=== PATIENT | female | born 1995 | race Caucasian/White ===

== ENCOUNTER 2020-04-30 11:15 | Outpatient (CLI) | payer BC, SELFPAY ==
[2020-04-30 18:35] LABS: Basophils Percent Auto 0.2 % (0.2-1.2); Eosinophils Absolute Auto 0.1 K/mm3 (0-0.3); Eosinophils Percent Auto 1.1 % (0-4.4); Hematocrit 37.6 % (37.0-47.0); Hemoglobin 11.8 g/dL (12.0-15.0); Immature Granulocyte Absolute 0.01 K/mm3 (0.00-0.031); Immature Granulocyte Percent A 0.2 % (0-0.5); Lymphocytes Absolute Auto 1.33 K/mm3 (0.9-3.2); Lymphocytes Percent Auto 24.5 % (18.3-44.2); Mean Corpuscular HGB Conc 31.4 g/dl (32-36); Mean Corpuscular Hemoglobin 27.4 pg (26-34); Mean Corpuscular Volume 87.4 fl (80-100); Mean Platelet Volume 10.9 fl (7.4-10.4); Monocytes Absolute Auto 0.3 K/mm3 (0.1-0.6); Monocytes Percent Auto 6.3 % (2.6-8.5); Neutrophils Absolute Auto 3.7 K/mm3 (1.3-6.7); Neutrophils Percent Auto 67.7 % (45.5-73.1); Platelet Count Result 268 k/mm3 (150-375); Red Cell Distribution Width 13.9 % (11.5-14.5); White Blood Count 5.4 K/mm3 (4.5-10.0)
[2020-04-30 18:41] LABS: Add Urine Microscopic? YES; Amorphous Sediment Urine Few; Appearance Urine Turbid (Clear); Bacteria Urine 3+ /hpf; Bilirubin Urine Negative (Negative); Blood Urine Negative (Negative); Color Urine Yellow (Yellow); Glucose Urine UA Negative (Negative); Ketones Urine Negative (Negative); Leukocyte Esterase Ur Negative LEU/UL (Negative); Mucus Urine Heavy /lpf; Nitrate Urine Negative (Negative); Protein Urine Negative (Negative); Specific Grav Ur 1.024 (1.001-1.035); Squamous Epithelial Cell Urine Many /hpf (Few); Urobilinogen Urine Negative mg/dL (<2.0)
[2020-04-30 18:50] LABS: Alanine Aminotransferase 16 U/L (4-35); Albumin Level 4.5 g/dL (3.5-5.1); Alkaline Phosphatase 65 U/L (38-126); Anion Gap 6 mmol/L (8-16); Aspartate Amino Transferase 28 U/L (14-36); Bilirubin,Total 0.3 mg/dL (0.2-1.3); Blood Urea Nitrogen 10 mg/dL (7-17); Calcium 9.7 mg/dL (8.4-10.2); Carbon Dioxide 30 mmol/L (22-30); Chloride 105 mmol/L (98-107); Cholesterol 178 mg/dL (0-200); Estimated Glomerular Filt Rate > 60; Glucose 93 mg/dL (65-105); HDL Direct 79 mg/dL; Potassium 4.1 mmol/L (3.4-5.0); Sodium 141 mmol/L (137-145); Triglycerides 60 mg/dL (<150)
[2020-04-30 19:01] LABS: LDL Cholesterol Direct 79 mg/dL
[2020-04-30 19:02] LABS: Free T4 Free Thyroxine 0.57 ng/mL (0.78-2.19); Vitamin D 25 Hydroxy 28.2 ng/mL
[2020-04-30 19:57] LABS: Folic Acid > 20.0 ng/mL (2.76->20)
[2020-05-03 07:48] LABS: Triiodothyronine T3 Free 2.6 pg/mL (2.3-4.2)
[2020-05-04 10:33] LABS: T3 Reverse 6 ng/dL (8-25)
[2020-05-04 13:20] LABS: Testosterone Free 2.7 pg/mL (0.1-6.4); Testosterone Total 25 ng/dL (2-45)
== END 2020-04-30 11:16 | disposition home or self-care (01) ==
LOC: ANHBWCLAB 11:16
PROVIDERS: PCP Family Medicine; Visit Provider Family Medicine
DX: E03.9 Hypothyroidism, unspecified (principal); D64.9 Anemia, unspecified; E07.9 Disorder of thyroid, unspecified; Z13.9 Encounter for screening, unspecified; Z82.62 Family history of osteoporosis; Z79.899 Other long term (current) drug therapy; G25.81 Restless legs syndrome; N99.89 Other postprocedural complications and disorders of genitourinary system; Z98.51 Tubal ligation status
CPT/HCPCS: 36415; 80053; 80061; 81001; 82306; 82607; 82746; 84402; 84403; 84439; 84443; 84481; 84482; 85025

== ENCOUNTER 2020-05-14 11:37 | Outpatient (CLI) | payer BC, SELFPAY ==
[2020-05-14 19:06] LABS: Add Urine Microscopic? YES; Appearance Urine Clear (Clear); Bacteria Urine Trace /hpf; Bilirubin Urine Negative (Negative); Blood Urine Negative (Negative); Color Urine Yellow (Yellow); Glucose Urine UA Negative (Negative); Ketones Urine Negative (Negative); Leukocyte Esterase Ur Negative LEU/UL (Negative); Mucus Urine Heavy /lpf; Nitrate Urine Negative (Negative); Protein Urine 1+ mg/dL (Negative); RBC Urine 0-2 /hpf (0-2); Specific Grav Ur 1.028 (1.001-1.035); Squamous Epithelial Cell Urine Occasional /hpf (Few); Urobilinogen Urine Negative mg/dL (<2.0); WBC Urine 0-3 /hpf
[2020-05-14 19:14] LABS: Pregnancy On Board Control Positive; Urine Pregnancy Test Negative
== END 2020-05-14 11:38 | disposition home or self-care (01) ==
LOC: ANHBWCLAB 11:39
PROVIDERS: PCP Family Medicine; Visit Provider Family Medicine
DX: R82.90 Unspecified abnormal findings in urine (principal); Z32.00 Encounter for pregnancy test, result unknown; Z79.899 Other long term (current) drug therapy
CPT/HCPCS: 81001; 81025